=== PATIENT | male | born 1995 | race Two or more races ===

== ENCOUNTER → 2024-06-13 | Emergency (ER) | payer OTHER ==
[~2024-06-13] VITALS: Ht 172.7 cm; Wt 62.6 kg
[~2024-06-13] MED LIST: ALPHAGAN P5 ML OP; ELVITEG/COB/EMTRI/TENOFO DISOP 1 UDTAB TABLET PO ONE
== END | disposition home or self-care (01) ==
LOC: ER 15:14
DX: I97.51 Accidental puncture and laceration of a circulatory system organ or structure during a circulatory system procedure (principal)